=== PATIENT | male | born 1960 | race Caucasian/White ===

== ENCOUNTER 2022-05-05 08:50 | Emergency (ER) | payer MEDICAID ==
[~2022-05-05] VITALS: Ht 172.7 cm; Wt 80.0 kg
[2022-05-05 08:54] VITALS: BP 179/108
[2022-05-05] MEDS ORDERED: HYDR-3965 PO (09:40)
[2022-05-05] MEDS ORDERED: ketorolac trometh inj. 60 MG/2 ML VIAL IM ONE (09:40)
== END 2022-05-05 10:27 | disposition home or self-care (01) ==
LOC: ER 08:51
DX: M25.511 Pain in right shoulder (principal)
CPT/HCPCS: 73030; 96372; 99283; J1885